=== PATIENT | female | born 2000 | race Caucasian/White ===

== ENCOUNTER 2019-06-22 18:01 | Inpatient (IN) | payer MEDICAID ==
[2019-06-22 19:13] LABS: APPEARANCE,URINE SLIGHTLY-CLOUDY; BILIRUBIN,URINE NEGATIVE (NEGATIVE); CALCIUM OXALATE CRYSTALS,URINE MODERATE /HPF; COLOR,URINE YELLOW; GLUCOSE, URINE NEGATIVE (NEGATIVE); KETONES,URINE NEGATIVE (NEGATIVE); LEUKOCYTE ESTERASE,URINE LARGE (NEGATIVE); NITRITE,URINE NEGATIVE (NEGATIVE); PROTEIN,URINE NEGATIVE (NEGATIVE); URINE SPECIFIC GRAVITY 1.025
[2019-06-22 19:37] LABS: URINE AMPHETAMINES SCREEN NEGATIVE; URINE BARBITURATES SCREEN NEGATIVE; URINE BENZODIAZEPINES SCREEN NEGATIVE; URINE COCAINE SCREEN NEGATIVE; URINE MARIJUANA (THC) SCREEN NEGATIVE; URINE METHADONE SCREEN NEGATIVE; URINE PHENCYCLIDINE SCREEN NEGATIVE
[2019-06-22] MEDS ORDERED: RINGERS SOLUTION,LACTATED 1,000 ML IV ONE (20:45)
[2019-06-22] MEDS ORDERED: RINGERS SOLUTION,LACTATED 1,000 ML IV PRN (20:45)
[2019-06-22] MEDS ORDERED: OXYTOCIN/NORMAL SALINE 20 UNIT/1,000 ML RTUINJ IV PRN (20:46)
[2019-06-22] MEDS ORDERED: LIDOCAINE 1% INJ-PF (10 MG/ML) 30 ML SDV ONE (21:07)
[2019-06-22] MEDS ORDERED: MISOPROSTOL 0.2 MG TABLET ONE (21:07)
[2019-06-22] MEDS ORDERED: OXYTOCIN/NORMAL SALINE 20 UNIT/1,000 ML RTUINJ ONE (21:08)
--- NOTE | 2019-06-22 21:24 | Admission Physical ---
Datetime Report Generated by CPN: 06/22/2019 21:24 CURRENT ADMISSION Chief Complaint: Uterine Contractions; Decreased Movement Indication for Induction: Postterm; Other Indication for Induction- Other: Decreased movements post 40wks Admit Impression : Term, Intrauterine ; No Active Labor; Intact Membranes; Induction of Labor Admit Plan: Admit to Unit; Initiate Labor Induction Protocol ALLERGIES Medication Allergies: No Medication Allergies: No Known Allergies (06/22/2019) Latex: No Latex Allergies OBSTETRICAL HISTORY EDC: 06/18/2019 00:00 : 1 Para: 0 Term: 0 : 0 SAB: 0 IAB: 0 Ectopic: 0 Livin Cesareans: 0 VBACs: 0 Multiple Births: 0 Gestational Diabetes: No Rh Sensitization: No Incompetent Cervix: No GISELA: No Infertility: No ART Treatment: No Uterine Anomaly: No IUGR: No Hx Previous C/S: No Macrosomia: No Hx Loss/Stillborn: No PIH: No Hx : No Placenta Previa/Abruption: No Depression/PP Depression: No PTL/PROM: No Post Hemorrhage: No Current Procedures: Ultrasound Obstetrical History Comments: G1: current SEE RECORDS Alcohol: No Marijuana : No Cocaine: No Other Illicit Drugs: No Cigarettes: Never Smoker. [id number] MEDICAL HISTORY Diabetes: No Blood Transfusion: No Pulmonary Disease (Asthma, TB): No Breast Disease: No Hypertension: No Mandrel Maker Surgery: No Heart Disease: No Hosp/Surgery: No Autoimmune Disorder: No Anesthetic Complications: No Kidney Disease: No Abnormal Pap Smear: No Neuro/Epilepsy: No Psychiatric Disorders: Yes Other Medical Diseases: No Hepatitis/Liver Disease: No Significant Family History: No Varicosities/Phlebitis: No Trauma/Violence : No Thyroid Dysfunction: No Medical History Comments: suicidal ideation 2 years ago INFECTIOUS HISTORY Gonorrhea: No Genital Herpes: No Chlamydia: No Tuberculosis: No Syphilis: No Hepatitis: No HIV/AIDS Exposure: No Rash or Viral Illness: No HPV: No PHYSICAL EXAM General: Normal HEENT: Normal Neurologic: Normal Thyroid: Deferred Heart: Normal Lungs: Normal Breast: Deferred Back: Normal Abdomen: Normal Genitourinary Exam: Normal Extremities: Normal DTRs: Normal Pelvic Type: Adequate Vital Signs: Reviewed VAGINAL EXAM Dilatation: 2 Effacement: 60 Station: -3 Contraction Comments: q 2-6 MEMBRANES Membranes: Intact FETUS A EGA: 40.4 Monitoring: External US FHR- Baseline: 135 Variability: Moderate 6-25bpm Accelerations: 15X15 Decelerations: None FHR Category: Category I Presentation: Vertex Admit Comment: 19yo at 40+4ega presents for decreased movement today and post term . Late onset care at 22wks and sporadic care - no transportation, "out of town". H/o severe depression with suicide attempt (pt reports related to THC and EtOH). wedding planner placed. Admit. Pt declines cook catheter and agrees to pitocin induction due to decreased movement at post term. CAT I NST at this time. PLANS FOR LABOR AND DELIVERY Labor and Delivery: Plan Pain Management: Natural Feeding Preference: Formula Benefit of Breast Feed Discussed: Yes Circumcision: Yes INFORMED CONSENT Informed Consent Obtained: Vaginal Delivery; Induction of Labor; Risks, Benefits and Alternatives Discussed Signature: with User ID: [email or web address]
[2019-06-22 21:34] LABS: ABSOLUTE EOSINOPHILS # (AUTO) 0.2 10^3/uL (0.0-0.6); ABSOLUTE LYMPHOCYTES (AUTO) 2.4 10^3/uL (0.5-4.7); ABSOLUTE MONOCYTES (AUTO) 0.8 10^3/uL (0.1-1.4); ABSOLUTE NEUT (AUTO) 8.7 10^3/uL (1.7-8.2); BASOPHILS % (AUTO) 0.3 % (0-2); EOSINOPHILS % (AUTO) 1.5 % (0-6); HEMATOCRIT 30.7 % (36.0-47.0); HEMOGLOBIN 10.1 g/dL (12.0-15.5); LYMPHOCYTES % (AUTO) 20.2 % (13-45); MEAN CORPUSCULAR HEMOGLOBIN 24.2 pg (27.0-33.4); MEAN CORPUSCULAR VOLUME 74 fl (80-97); MONOCYTES % (AUTO) 6.3 % (3-13); PLATELET COUNT 273 10^3/uL (150-450); RED BLOOD COUNT 4.18 10^6/uL (3.72-5.28); RED CELL DISTRIBUTION WIDTH 16.7 % (11.5-14.0); SEGMENTED NEUTROPHILS % (AUTO) 71.7 % (42-78); TOTAL CELLS COUNTED % (AUTO) 100 %; WHITE BLOOD COUNT 12.1 10^3/uL (4.0-10.5)
[2019-06-23] MEDS ORDERED: DIPHENHYDRAMINE HCL 50 MG/ML VIAL IV PRN (00:36)
[2019-06-23] MEDS ORDERED: DIPHENHYDRAMINE HCL 50 MG/ML VIAL ONE (01:31)
--- NOTE | 2019-06-23 06:30 | PDOC DISCHARGE SUMMARY ---
General - Admit/Disc Date/PCP Admission Date/Primary Care Provider: 06/22/19 20:32 SAMINA OLIVEIRA Discharge Date: 06/23/19 - Discharge Diagnosis (1) Decreased movement Is this a current diagnosis for this admission?: Yes (2) Late care Is this a current diagnosis for this admission?: Yes (3) Poor patient attendance of care Is this a current diagnosis for this admission?: Yes (4) Post-term , 40-42 weeks of gestation Is this a current diagnosis for this admission?: Yes - Additional Information Resuscitation Status: Full Code Discharge Diet: As Tolerated Discharge Activity: Activity As Tolerated Home Medications: Diphenhydramine HCl [Benadryl Inj 50 mg/1 ml Vial] 50 mg IV Q6HP PRN vial 06/23/19 History of Present Illness Patient complains of: Decreased Movement at 40+5ega History of Present Illness: JESUS BROWN is a 19 year old female at 40+4ega now 40+5ega presented on 06/22 with decreased movement. Reviewed CAT I NST but due to postterm and decreased movement would recommend IOL. REviewed IOL options: pitocin, Pitocin/COoks, Cytotec/Cervidil. Reviewed due to cvx 2cm would recommend pitocin/cooks. Patient reviewed cooks and then was on pitocin for aprox 10 hours with no cervical change. reviewed options again with patient and she desires at this time to leave against medical advice. REviewed risks, maternal and morbidity and mortality and unexlapined IUFD. Pt has a history of late to care and non compliance with care and poor attendance of care. Hospital Course Hospital Course: at 40+4ega presented for decreased movement. Due to advanced gestational age Physical Exam - Physical Exam Vital Signs: Intake & Output 06/21/19 06/22/19 06/23/19 06:59 06:59 06:59 Intake Total 549 Balance 549 Weight 92.5 kg General appearance: PRESENT: no acute distress, well-developed, well-nourished Head exam: PRESENT: atraumatic, normocephalic Respiratory exam: PRESENT: clear to auscultation micaela, symmetrical, unlabored Cardiovascular exam: PRESENT: bradycardia Rectal exam: PRESENT: deferred Neurological exam: PRESENT: alert, awake, oriented to person, oriented to place, oriented to time, oriented to situation, CN II-XII grossly intact. ABSENT: motor sensory deficit Psychiatric exam: PRESENT: appropriate affect, normal mood. ABSENT: homicidal ideation, suicidal ideation Skin exam: PRESENT: dry, intact, warm. ABSENT: cyanosis, rash Result Laboratory Results: 06/22/19 21:15 06/22/19 06/22/19 06/22/19 18:30 21:15 21:15 WBC 12.1 H RBC 4.18 Hgb 10.1 L Hct 30.7 L MCV 74 L MCH 24.2 L MCHC 33.0 RDW 16.7 H Plt Count 273 Seg Neutrophils % 71.7 Urine Color YELLOW Urine Appearance SLIGHTLY-CLOUDY Urine pH 6.0 Ur Specific [place] 1.025 Urine Protein NEGATIVE Urine Glucose (UA) NEGATIVE Urine Ketones NEGATIVE Urine Blood NEGATIVE Urine Nitrite NEGATIVE Ur Leukocyte Esterase LARGE H Urine WBC (Auto) 6 Urine RBC (Auto) 2 Blood Type O POSITIVE Antibody Screen NEGATIVE Status: Imported from PACS Plan Discharge Plan: Left AMA Acute Heart Failure - Is this a Heart Failure Patient?: No
== END 2019-06-23 06:42 | disposition left against medical advice (07) | DRG 833 ==
LOC: EDSTATUS 18:05 → LR 20:32
PROVIDERS: ADMIT Student in an Organized Health Care Education/Training Program; ATTEND Student in an Organized Health Care Education/Training Program
DX: O48.0 Post-term pregnancy (principal); O36.8130 Decreased fetal movements, third trimester, not applicable or unspecified; Z3A.40 40 weeks gestation of pregnancy; O09.33 Supervision of pregnancy with insufficient antenatal care, third trimester
CPT/HCPCS: 36415; 80307; 81001; 85025; 86592; 86850; 86900; 86901; 94760; J1200; J2590; J3490

== ENCOUNTER 2019-06-24 11:05 | Inpatient (IN) | payer MEDICAID ==
[2019-06-24] MEDS ORDERED: RINGERS SOLUTION,LACTATED 300 ML IV ONE (11:36)
[2019-06-24] MEDS: RINGERS SOLUTION,LACTATED 1,000 ML IV PRN ×2 (12:00→16:13)
[2019-06-24 12:58] LABS: ABSOLUTE EOSINOPHILS # (AUTO) 0.4 10^3/uL (0.0-0.6); ABSOLUTE LYMPHOCYTES (AUTO) 2.4 10^3/uL (0.5-4.7); ABSOLUTE MONOCYTES (AUTO) 0.6 10^3/uL (0.1-1.4); ABSOLUTE NEUT (AUTO) 7.3 10^3/uL (1.7-8.2); BASOPHILS % (AUTO) 0.3 % (0-2); EOSINOPHILS % (AUTO) 3.5 % (0-6); HEMATOCRIT 30.5 % (36.0-47.0); HEMOGLOBIN 9.9 g/dL (12.0-15.5); LYMPHOCYTES % (AUTO) 22.6 % (13-45); MEAN CORPUSCULAR HEMOGLOBIN 23.9 pg (27.0-33.4); MEAN CORPUSCULAR HGB CONC 32.4 g/dL (32.0-36.0); MEAN CORPUSCULAR VOLUME 74 fl (80-97); MONOCYTES % (AUTO) 5.8 % (3-13); PLATELET COUNT 246 10^3/uL (150-450); RED BLOOD COUNT 4.13 10^6/uL (3.72-5.28); RED CELL DISTRIBUTION WIDTH 16.5 % (11.5-14.0); SEGMENTED NEUTROPHILS % (AUTO) 67.8 % (42-78); TOTAL CELLS COUNTED % (AUTO) 100 %; WHITE BLOOD COUNT 10.7 10^3/uL (4.0-10.5)
[2019-06-24 13:02] LABS: APPEARANCE,URINE CLOUDY; BILIRUBIN,URINE NEGATIVE (NEGATIVE); COLOR,URINE YELLOW; GLUCOSE, URINE NEGATIVE (NEGATIVE); KETONES,URINE NEGATIVE (NEGATIVE); LEUKOCYTE ESTERASE,URINE LARGE (NEGATIVE); NITRITE,URINE NEGATIVE (NEGATIVE); PROTEIN,URINE NEGATIVE (NEGATIVE); URINE SPECIFIC GRAVITY 1.017; UROBILINOGEN,URINE NEGATIVE mg/dL (<2.0)
[2019-06-24] MEDS ORDERED: OXYTOCIN/NORMAL SALINE 20 UNIT/1,000 ML RTUINJ IV PRN (13:05)
[2019-06-24 13:19] LABS: URINE AMPHETAMINES SCREEN NEGATIVE; URINE BARBITURATES SCREEN NEGATIVE; URINE BENZODIAZEPINES SCREEN NEGATIVE; URINE COCAINE SCREEN NEGATIVE; URINE MARIJUANA (THC) SCREEN NEGATIVE; URINE METHADONE SCREEN NEGATIVE; URINE PHENCYCLIDINE SCREEN NEGATIVE
--- NOTE | 2019-06-24 13:25 | Admission Physical ---
Datetime Report Generated by CPN: 06/24/2019 13:25 CURRENT ADMISSION Chief Complaint: Uterine Contractions; Decreased Movement Indication for Induction: Postterm Indication for Induction- Other: Decreased movements post 40wks Admit Impression : Term, Intrauterine Admit Plan: Admit to Unit; Initiate Labor Induction Protocol ALLERGIES Medication Allergies: No Medication Allergies: No Known Allergies (06/22/2019) Latex: No Latex Allergies OBSTETRICAL HISTORY EDC: 06/18/2019 00:00 : 1 Para: 0 Term: 0 : 0 SAB: 0 IAB: 0 Ectopic: 0 Livin Cesareans: 0 VBACs: 0 Multiple Births: 0 Gestational Diabetes: No Rh Sensitization: No Incompetent Cervix: No GISELA: No Infertility: No ART Treatment: No Uterine Anomaly: No IUGR: No Hx Previous C/S: No Macrosomia: No Hx Loss/Stillborn: No PIH: No Hx : No Placenta Previa/Abruption: No Depression/PP Depression: No PTL/PROM: No Post Hemorrhage: No Current Procedures: Ultrasound; NST Obstetrical History Comments: G1: current SEE RECORDS Alcohol: No Marijuana : No Cocaine: No Other Illicit Drugs: No Cigarettes: Never Smoker. 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 Surgery: No Heart Disease: No Hosp/Surgery: No Autoimmune Disorder: No Anesthetic Complications: No Kidney Disease: No Abnormal Pap Smear: No Neuro/Epilepsy: No Psychiatric Disorders: Yes Other Medical Diseases: No Hepatitis/Liver Disease: No Significant Family History: No Varicosities/Phlebitis: No Trauma/Violence : No Thyroid Dysfunction: No Medical History Comments: suicidal ideation 2 years ago INFECTIOUS HISTORY Gonorrhea: No Genital Herpes: No Chlamydia: No Tuberculosis: No Syphilis: No Hepatitis: No HIV/AIDS Exposure: No Rash or Viral Illness: No HPV: No PHYSICAL EXAM General: Normal HEENT: Normal Neurologic: Normal Thyroid: Normal Heart: Normal Lungs: Normal Breast: Normal Back: Normal Abdomen: Normal Genitourinary Exam: Normal Extremities: Normal DTRs: Normal Pelvic Type: Adequate Vital Signs: Reviewed; Within Normal Limits VAGINAL EXAM Dilatation: 3 Effacement: 70 Station: -1 Contraction Comments: q5-6 MEMBRANES Membranes: Intact FETUS A EGA: 40.4 Monitoring: External US FHR- Baseline: 135 Variability: Moderate 6-25bpm Accelerations: 15X15 Decelerations: None FHR Category: Category I Presentation: Vertex Admit Comment: sent over from the office w/ NR NST. Pt here for IOL at 40 wks 6 days. GBS negative. VE 2-3/-2, vtx, EFW 9 pounds. Pt w/ hx of depression and suicide attempt at age 17. Plan to admint for IOL, pt to eat lunch and then will start Pitocin. Attending MD is Dr Ackerman. PLANS FOR LABOR AND DELIVERY Labor and Delivery: Plan Pain Management: Natural Feeding Preference: Formula Benefit of Breast Feed Discussed: Yes Circumcision: Yes INFORMED CONSENT Informed Consent Obtained: Vaginal Delivery; Induction of Labor; Risks, Benefits and Alternatives Discussed Assignment: Kylee Snider MD Signature: with User ID: [email or web address] : with User ID: [email or web address]
[2019-06-24] MEDS ORDERED: OXYTOCIN 10 UNIT/ML VIAL ONE (13:53)
[2019-06-24] MEDS ORDERED: MISOPROSTOL 0.2 MG TABLET ONE (13:54)
[2019-06-24] MEDS ORDERED: LIDOCAINE 1% INJ-PF (10 MG/ML) 30 ML SDV ONE (13:54)
[2019-06-24] MEDS ORDERED: OXYTOCIN/NORMAL SALINE 20 UNIT/1,000 ML RTUINJ ONE (13:55)
[2019-06-24] MEDS ORDERED: NALBUPHINE HCL INJ 10 MG/1 ML AMPULE INJ ONE (18:01)
[2019-06-24] MEDS ORDERED: PROMETHAZINE HCL INJ 25 MG/1 ML VIAL IV ONE (18:01)
[2019-06-24] MEDS ORDERED: NALBUPHINE HCL INJ 10 MG/1 ML AMPULE ONE (18:04)
[2019-06-24] MEDS ORDERED: PROMETHAZINE HCL INJ 25 MG/1 ML VIAL ONE (18:04)
[2019-06-24] MEDS ORDERED: PHENYLEPHRINE HCL INJ/PF 10 MG/1 ML SDV ONE (19:19)
[2019-06-24] MEDS ORDERED: FENTANYL/BUPIVACAINE/NS/PF 300 MCG/150 ML RTUINJ EPI ONE (19:20)
[2019-06-24] MEDS ORDERED: BUPIVACAINE HCL 0.25 % INJ/PF (2.5 MG/1 ML) 30 ML VIAL ONE (19:20)
[2019-06-24] MEDS ORDERED: FENTANYL CITRATE INJ/PF 100 MCG/2 ML AMPUL ONE (19:20)
[2019-06-24] MEDS ORDERED: EPHEDRINE SULFATE INJ 50 MG/1 ML AMPULE ONE (19:20)
[2019-06-25] MEDS ORDERED: LIDOCAINE 2%/EPINEPHRINE INJ 20 ML VIAL ONE (00:21)
[2019-06-25] MEDS ORDERED: DIBUCAINE 1% OINTMENT 56 GM TP PRN (03:44)
[2019-06-25] MEDS ORDERED: OXYTOCIN/NORMAL SALINE 20 UNIT/1,000 ML RTUINJ IV PRN (03:44)
[2019-06-25] MEDS ORDERED: BENZOCAINE/MENTHOL AEROSOL SPRAY 56 ML TOP PRN (03:44)
[2019-06-25] MEDS ORDERED: ACETAMINOPHEN WITH CODEINE #3 TABLET PO PRN ×2 (03:44)
[2019-06-25] MEDS ORDERED: DIPH/PERTUSS(ACELL)/TETANUS VAC/PF 0.5 ML SYR (>=10YO) IM PRN (03:44)
[2019-06-25] MEDS ORDERED: ZOLPIDEM TARTRATE 5 MG TABLET PO PRN (03:44)
[2019-06-25 03:55] LABS: ARTERIAL BLOOD BASE EXCESS -11.2 mmol/L; ARTERIAL BLOOD H2CO3 2.19 mmol/L (1.05-1.35); ARTERIAL BLOOD HCO3 20.5 mmol/L (20-24); ARTERIAL BLOOD O2 SATURATION 15.1 % (94-98); ARTERIAL BLOOD TOTAL CO2 22.7 mmol/L (21-25)
[2019-06-25 03:57] LABS: ARTERIAL BLOOD FIO2 CORD BLOOD; ARTERIAL BLOOD PCO2 72.6 mmHg (35-45); ARTERIAL BLOOD PH 7.07 (7.35-7.45)
[2019-06-25] MEDS ORDERED: IBUPROFEN 800 MG TABLET ONE (05:53)
[2019-06-25] MEDS: IBUPROFEN 800 MG TABLET PO SCH ×3 (05:56→21:06)
[2019-06-25] MEDS ORDERED: IRON SUCROSE COMPLEX INJ/PF 100 MG/5 ML SDV IV ONE (09:00)
[2019-06-25] MEDS: PRENATAL VITAMIN W DHA CAPSULE PO SCH (11:15)
[2019-06-25] MEDS: FERROUS SULFATE 325 MG TABLET PO SCH ×2 (11:15→18:19)
[2019-06-25] MEDS: SENNOSIDES/DOCUSATE 8.6-50 MG 1 EACH TABLET PO SCH (11:16)
[2019-06-25] MEDS: DOCUSATE SODIUM 100 MG CAPSULE PO SCH ×2 (11:16→18:19)
--- NOTE | 2019-06-25 11:20 | PDOC PROGRESS REPORT ---
Subjective-OB Progress Note for:: 06/25/19 Subjective: 19yo G1 now P1 s/p delivery date. Ambulating and voiding without difficulty. Trying to rest at this time, baby in the nursery. Reports pain well controlled with medication, no concerns at this time Physical Exam (OB) Vital Signs: Temp Pulse Resp BP Pulse Ox 99.1 F 111 H 18 118/65 100 06/25/19 07:33 06/25/19 08:06 06/25/19 07:33 06/25/19 08:06 06/25/19 08:06 Intake & Output 06/24/19 06/25/19 06/26/19 06:59 06:59 06:59 Intake Total 527 Balance 527 Weight 93.3 kg - General General Appearance: Appears well, Sleeping/easily aroused In distress: None - PIH/Pre-Eclampsia DTR's: 2 + Clonus: Negative Headache: Absent Epigastric Pain: No Visual Changes: No - Episiotomy/Laceration Site Condition: Well Approximated - Lochia Lochia Amount: Small 10-25 ml Lochia Color: Rubra/Red - Abdomen Description: Soft Fundal Description: Firm, Midline Fundal Height: u/u - u/2 - Respiratory Respiratory Status: No respiratory distress - Extremities Upper extremity: Normal inspection Lower extremities: Normal inspection - Neurological Cognition: Normal Orientation: AAOx4 - Psychological Associated symptoms: Normal affect, Normal mood Objective-Diagnostic Laboratory: 06/24/19 12:25 06/24/19 06/24/19 06/24/19 12:25 12:25 12:49 WBC 10.7 H RBC 4.13 Hgb 9.9 L Hct 30.5 L MCV 74 L MCH 23.9 L MCHC 32.4 RDW 16.5 H Plt Count 246 Seg Neutrophils % 67.8 Carbonic Acid HCO3/H2CO3 Ratio ABG pH ABG pCO2 ABG pO2 ABG HCO3 ABG O2 Saturation ABG Base Excess FiO2 Urine Color YELLOW Urine Appearance CLOUDY Urine pH 7.0 Ur Specific [place] 1.017 Urine Protein NEGATIVE Urine Glucose (UA) NEGATIVE Urine Ketones NEGATIVE Urine Blood NEGATIVE Urine Nitrite NEGATIVE Ur Leukocyte Esterase LARGE H Blood Type O POSITIVE Antibody Screen NEGATIVE 06/25/19 03:11 WBC RBC Hgb Hct MCV MCH MCHC RDW Plt Count Seg Neutrophils % Carbonic Acid 2.19 H HCO3/H2CO3 Ratio 9:1 ABG pH 7.07 L* ABG pCO2 72.6 H* ABG pO2 18.0 L* ABG HCO3 20.5 ABG O2 Saturation 15.1 L ABG Base Excess -11.2 FiO2 CORD BLOOD Urine Color Urine Appearance Urine pH Ur Specific [place] Urine Protein Urine Glucose (UA) Urine Ketones Urine Blood Urine Nitrite Ur Leukocyte Esterase Blood Type Antibody Screen Assessment and Plan(PN) - Assessment and Plan (1) Vaginal delivery Is this a current diagnosis for this admission?: Yes Plan: routine pp care (2) Obstetric vaginal laceration, delivered, current hospitalization Is this a current diagnosis for this admission?: Yes Plan: continue to monitor for s/s of infection (3) Laceration of periurethral tissue with delivery, delivered Is this a current diagnosis for this admission?: Yes Plan: continue to monitor for s/s of infection (4) Anemia affecting in third trimester Is this a current diagnosis for this admission?: Yes Plan: increase dietary iron and FeSO4 BID (5) Poor patient attendance of care Is this a current diagnosis for this admission?: Yes Plan: delivered (6) Late care Is this a current diagnosis for this admission?: Yes Plan: delivered (7) Post-term , 40-42 weeks of gestation Is this a current diagnosis for this admission?: Yes Plan: delivered - Time Spent with Patient Time with patient: Less than 15 minutes Medications reviewed and adjusted accordingly: Yes - Disposition Anticipated Discharge: Home Within: within 48 hours
[2019-06-26] MEDS: IBUPROFEN 800 MG TABLET PO SCH (05:24)
[2019-06-26 06:39] LABS: MEAN CORPUSCULAR HEMOGLOBIN 23.5 pg (27.0-33.4); MEAN CORPUSCULAR HGB CONC 31.9 g/dL (32.0-36.0); MEAN CORPUSCULAR VOLUME 74 fl (80-97); PLATELET COUNT 197 10^3/uL (150-450); RED BLOOD COUNT 3.12 10^6/uL (3.72-5.28); WHITE BLOOD COUNT 12.5 10^3/uL (4.0-10.5)
[2019-06-26 06:42] LABS: HEMOGLOBIN 7.3 g/dL (12.0-15.5)
[2019-06-26 08:29] VITALS: BP 115/65
--- NOTE | 2019-06-26 10:14 | PDOC DISCHARGE SUMMARY ---
Final Diagnosis Discharge Date: 06/26/19 - Final Diagnosis (1) Anemia affecting in third trimester Is this a current diagnosis for this admission?: Yes (2) Obstetric vaginal laceration, delivered, current hospitalization Is this a current diagnosis for this admission?: Yes (3) Vaginal delivery Is this a current diagnosis for this admission?: Yes (4) Late care Is this a current diagnosis for this admission?: Yes Discharge Data - Discharge Medication Home Medications: Prenat 115/Iron Fum/Folic/Dss [ 19 Tablet] 1 tab PO DAILY 06/24/19 Reason(s) for Admission: Induction of Labor Procedures: NST Intrapartum Procedure(s): Spontaneous Vaginal Delivery Complication(s): Laceration-Perineal Laceration-Degree: 1st - Diagnosis Test Laboratory: Temp Pulse Resp BP Pulse Ox 97.9 F 85 14 115/65 100 06/26/19 07:54 06/26/19 07:54 06/26/19 07:54 06/26/19 07:54 06/26/19 07:54 06/24/19 06/24/19 06/26/19 12:25 12:49 06:17 RBC 4.13 3.12 L Hgb 9.9 L 7.3 L D Hct 30.5 L 23.0 L Urine Opiates Screen NEGATIVE - Discharge information/Instructions Discharge Activity: Bedrest, Pelvic Rest Discharge Diet: Regular Disposition: HOME, SELF-CARE Follow up with: [facility] in: 4, Weeks
--- NOTE | 2019-06-26 10:27 | Delivery Summary ---
Del Sum A-C Datetime Report Generated by CPN: 06/26/2019 10:27 DELIVERY PERSONNEL DELIVERY PERSONNEL: [id number] Delivery Doctor:: Kylee Snider MD Labor and Delivery Nurse:: Nasrin Kumar RNforming acid dumper Nurse:: Portia Lee RN Roofer Assistant/OIL HEATER INSTALLER: Gay Rachel, ST MATERNAL INFORMATION Delivery Anesthesia: Epidural Medications After Delivery: Pitocin Bolus-Please Comment; Cytotec 1000mcg Per Rectum/Vagina Estimated Blood Loss (ml): 100 Delivery QBL: 100 Maternal Complications: None Provider Comments: of a viable male at 0306 w/ OA with nuchal presentation; APGARS pending; 1st deg periurethral and 2nd deg left vag lac LABOR SUMMARY EDC: 06/18/2019 00:00 No. Babies in Womb: 1 Attempted: No Labor Anesthesia: Epidural LABOR INFORMATION Reason for Induction: Not Applicable Onset of Labor: 06/25/2019 16:03 Complete Dilatation: 06/25/2019 01:35 Oxytocin: Induction Group B Beta Strep: negative Antibiotics # of Doses: 0 Steroids Given: None Reason Steroids Not Administered: Not Applicable MEMBRANES Membranes Rupture Method: Artificial Rupture of Membranes: 06/25/2019 16:03 Length of Rupture (hr): -12.95 Amniotic Fluid Color: Clear Amniotic Fluid Amount: Moderate Amniotic Fluid Odor: None STAGES OF LABOR Stage 1 hr: -14 Stage 1 min: -28 Stage 2 hr: 1 Stage 2 min: 31 Stage 3 hr: 0 Stage 3 min: 8 Total Time in Labor hr: -12 Total Time in Labor min: -49 VAGINAL DELIVERY Episiotomy: None Laceration #1: Vaginal Laceration Extension #1: Second Degree Laceration #2: Periurethral Laceration Extension #2: First Degree Laceration Repair: Yes Laceration Repair Note: 1st degree periuretral lac repaired w/3-0 Chromic; 2nd deg left vag lac repaired w/2-0 Vicryl Sponge Count Correct: Yes Sharps Count Correct: Yes BABY A INFORMATION Delivery Date/Time: 06/25/2019 03:06 Method of Delivery: Vaginal Born in Route : No : N/A Forceps: N/A Vacuum Extraction: N/A Shoulder Dystocia : No PRESENTATION/POSITION BABY A Presentation: Cephalic Cephalic Presentation: Vertex Vertex Position: OA, Right Compound Hand Breech Presentation: N/A PLACENTA INFORMATION BABY A Placenta Delivery Time : 06/25/2019 03:14 Placenta Method of Delivery: Spontaneous Placenta Method of Delivery: Spontaneous Placenta Status: Delivered SCORES BABY A Heart Rate 1 min: >100 bpm Resp Effort 1 min: Absent Reflex Irritability 1 min: No Response Muscle Tone 1 min: Flaccid Color 1 min: Blue/Pale Resuscitation Effort 1 min: Tactile Stimulation; PPV/NCPAP SCORE 1 MIN: 2 Heart Rate 5 min: >100 bpm Resp Effort 5 min: Slow, Irregular Reflex Irritability 5 min: Cough or Sneeze or Pulls Away Muscle Tone 5 min: Some Flexion of Extremities Color 5 min: Body [place], Extremities Blue Resuscitation Effort 5 min: Tactile Stimulation; Oxygen SCORE 5 MIN: 7 INFORMATION BABY A Gestational Age at Delivery: 41.0 Gestational Status: Late Term- 41- 41.6 Weeks Infant Outcome : Liveborn Condition : Stable Infant Sex: Male IDENTIFICATION BABY A Verification Date/Time: 06/25/2019 03:28 ID Band Number: [id number] Mother's Name Verified: Yes RN Verifying Infant: Jeannine Murphy RN/ NMary Bai RN WEIGHT/LENGTH BABY A Birthweight (gm): 3975 Weight (lb): 8 Weight (oz): 12 Length (in): 22.00 Infant Length (cm): 55.88 CORD INFORMATION BABY A No. Cord Vessels: 3 Nuchal Cord : Around Neck x1, Loose Cord Blood Taken: Yes-For Eval (Mom's Blood Type - or O+) Suction: Mouth; Nose ASSESSMENT BABY A Skin to Skin: No BABY B INFORMATION : N/A SIGNATURES Signature: with User ID: [email or web address]
[2019-06-26] MEDS: SENNOSIDES/DOCUSATE 8.6-50 MG 1 EACH TABLET PO SCH (10:49)
[2019-06-26] MEDS: FERROUS SULFATE 325 MG TABLET PO SCH (10:49)
[2019-06-26] MEDS: PRENATAL VITAMIN W DHA CAPSULE PO SCH (10:49)
[2019-06-26] MEDS: DOCUSATE SODIUM 100 MG CAPSULE PO SCH (10:49)
== END 2019-06-26 12:48 | disposition home or self-care (01) | DRG 807 ==
LOC: LC 11:05 → LR 11:35 → 2S 06-25 06:17
PROVIDERS: ADMIT Obstetrics & Gynecology; ATTEND Obstetrics & Gynecology
PROC: 10E0XZZ Delivery of Products of Conception, External Approach (ICD-10-PCS; principal; 2019-06-25)
PROC: 0KQM0ZZ Repair Perineum Muscle, Open Approach (ICD-10-PCS; 2019-06-25)
PROC: 0UQMXZZ Repair Vulva, External Approach (ICD-10-PCS; 2019-06-25)
DX: O48.0 Post-term pregnancy (principal); Z37.0 Single live birth; O76 Abnormality in fetal heart rate and rhythm complicating labor and delivery; O69.81X0 Labor and delivery complicated by cord around neck, without compression, not applicable or unspecified; O71.82 Other specified trauma to perineum and vulva; O70.1 Second degree perineal laceration during delivery; Z3A.41 41 weeks gestation of pregnancy; Z91.5 Personal history of self-harm; O32.6XX0 Maternal care for compound presentation, not applicable or unspecified; O99.02 Anemia complicating childbirth; D64.9 Anemia, unspecified; Z37.9 Outcome of delivery, unspecified
CPT/HCPCS: 36415; 80307; 81005; 82803; 85025; 85027; 86592; 86850; 86900; 86901; 88307; J1756; J2300; J2370; J2550; J2590; J3010; J3490